=== PATIENT | male | born 1990 | race Caucasian/White ===

== ENCOUNTER 2016-03-26 16:40 | Emergency (ER) | payer OTHER ==
[~2016-03-26] VITALS: Ht 177.8 cm; Wt 83.9 kg
[2016-03-26] MEDS ORDERED: TETANUS,DIPTH,PERTUSS P/F (BOOSTRIX) 0.5 ML VIAL IM STA (17:39)
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
[2016-03-26] MEDS ORDERED: EMTR1TAB7 PO ×2 (18:19→18:31)
[2016-03-26] MEDS ORDERED: RALT400T PO ×2 (18:19→18:31)
[2016-03-26 18:54] VITALS: BP 158/96
[2016-03-26] MEDS ORDERED: RALTEGRAVIR 400 MG (ISENTRESS) TABLET PO SCH (21:00)
[2016-03-27] MEDS ORDERED: EMTRICITABINE/TENOFOVIR (TRUVADA) TAB PO SCH (09:00)
[2016-03-28 07:54] LABS: HIV 1/2 INTERP See Footnote; HIV AG AB SCREEN Non-Reactive (Non-Reactive)
== END 2016-03-26 18:50 | disposition home or self-care (01) ==
LOC: EDUNIT# 16:40 → ER 16:42
DX: S61.432A Puncture wound without foreign body of left hand, initial encounter (principal); Z77.21 Contact with and (suspected) exposure to potentially hazardous body fluids; Z23 Encounter for immunization; W26.0XXA Contact with knife, initial encounter; Y99.0 Civilian activity done for income or pay
CPT/HCPCS: 36415; 80074; 86703; 90471; 90715; 99283